=== PATIENT | male | born 1940 | race Caucasian/White ===

== ENCOUNTER 2017-04-04 06:52 | Emergency (ER) | payer OTHER, MEDICARE ==
[2017-04-04 07:16] VITALS: RESP 16; TEMP 97.5
--- NOTE | 2017-04-04 08:02 | EDPHY ---
H & P Time Seen by Provider: 04/04/17 07:52 HPI/ROS: CHIEF COMPLAINT: Bilateral neck pain HISTORY OF PRESENT ILLNESS: Patient is a 76-year-old male with multiple medical problems including diabetes, atrial fibrillation and spinal stenosis who presents to the emergency department with bilateral neck pain. His pain is primarily over his trapezius bilaterally extending up his neck to the base of his head. He feels as though the muscles tight and spasming. He does not recall an injury. However, he did use and elliptical for the 1st time a day or 2 ago. Patient denies any weakness or numbness. No visual change. Patient has discomfort at the base of his head extending to the neck muscles but no headache specifically. The patient states that he recently underwent colonoscopy. He has been on Lovenox. 2 days ago he had his INR checked it was 1.8. He just discontinued his Lovenox. He was also complaining of mild bruising at the Lovenox injection sites. No abdominal pain. No nausea vomiting. REVIEW OF SYSTEMS: My complete review of systems is negative except as mentioned in the HPI. Past Medical/Surgical History: Includes diabetes, atrial fibrillation, neuropathy, arthritis, spinal stenosis, coronary artery disease Past surgical history: Includes cardiac stent Social history: The patient is visiting his family. He is currently living in their walk out basement. Smoking Status: Never smoked Physical Exam: 36.4, 120/89, 96, 16, 95% on room air GENERAL: Well-appearing, in no acute distress, alert. HEENT: Eyes normal to inspection, normal pharynx, no signs of dehydration. NECK: Patient has no midline cervical tenderness palpation. No bony deformity. Patient has mild tenderness palpation over his trapezius bilaterally. The muscles do see mildly tight. There is no tenderness palpation over the vessels of the neck. No bruit. No thyromegaly, no lymphadenopathy, supple. RESPIRATORY: Clear to auscultation bilaterally, no rales, rhonchi or wheezing. CVS: Regular rate and rhythm, no rubs, murmurs, or gallops. ABDOMEN: Soft, nontender, nondistended, no organomegaly. Patient has bruising of various stages on his lower abdomen where he was giving his Lovenox injections. No abdominal tenderness palpation. No large hematoma. BACK: Normal to inspection, no CVA tenderness. SKIN: Normal color, no rash, warm, dry. No pallor. EXTREMITIES: No pedal edema, no calf tenderness, no Homans sign or cords, no joint swelling. NEURO/PSYCH: Higher functions: [Alert and Oriented x3]. [Normal speech and cognition]. [ Normal mood and affect]. Cranial nerves: [Normal as tested]. Cerebellar: [Normal as tested. Good finger to nose, good [id number], normal gait]. Peripheral exam: [Normal motor exam. Normal sensation. Normal reflexes]. Constitutional: Initial Vital Signs Temperature (C) 36.4 C 04/04/17 07:11 Heart Rate 96 04/04/17 07:11 Respiratory Rate 16 04/04/17 07:11 Blood Pressure 120/89 H 04/04/17 07:11 O2 Sat (%) 95 04/04/17 07:11 O2 Delivery Mode Room Air Allergies/Adverse Reactions: No Known Allergies Allergy (Unverified 04/04/17 07:27) Home Medications: Medication Instructions Recorded Aspirin 04/04/17 Benazepril HCl 04/04/17 Biotin 04/04/17 Chlorthalidone 04/04/17 Coumadin 04/04/17 Cyclobenzaprine [Flexeril] 5 mg PO TID #15 tab 04/04/17 Diltiazem 04/04/17 Glucosamine 04/04/17 Lipitor 04/04/17 Lyrica 04/04/17 Magnesium 04/04/17 Metformin HCl 04/04/17 Metoprolol Tartrate 04/04/17 Multivitamin 04/04/17 Tradjenta 04/04/17 Tylenol 04/04/17 Vitamin B-12 04/04/17 Zolpidem Tartrate 04/04/17 Medical Decision Making ED Course/Re-evaluation: In the emergency department I discussed possible etiologies with the patient. I answered all his questions. Because the patient is tracking is INR I ordered laboratory studies. A CT of his neck was ordered. INR is 2.02 CT of the C-spine: Please refer the dictated by Dr. Tae Cordero. Patient has degenerative disease. No acute disease noted. I discussed risks patient. Was given warnings prior to leaving. He will continue to take Tylenol home. He is given a prescription for Flexeril. He is given warnings request medication. Differential Diagnosis: My differential includes but is not limited to disc herniation, spinal stenosis , muscle strain, muscle spasm, torticollis, coagulopathy - Data Points Laboratory Results: 04/04/17 08:05 PT 22.9 SEC H SEC (12.0-15.0) INR 2.02 H (0.83-1.16) APTT 42.9 SEC H SEC (23.0-38.0) Departure - Departure Disposition: Home, Routine, Self-Care Clinical Impression: Neck pain, Neck muscle spasm Condition: Good Instructions: Muscle Spasm (ED), Neck Pain (ED), Acute Neck Pain (ED) Additional Instructions: Return with increasing pain, weakness, numbness, headache, vomiting or any other concerns. Your medicine may make you slightly dizzy. Make sure you of health when ambulating. You can take Tylenol 650 mg every 6 hr while awake. Referrals: Kamran Perez MD [Primary Care Provider] - 2-3 days, if not improved Prescriptions: Cyclobenzaprine [Flexeril] 5 mg PO TID #15 tab
[2017-04-04 08:40] LABS: INR 2.02 (0.83-1.16); PROTIME(PATIENT) 22.9 SEC (12.0-15.0)
[2017-04-04 09:21] VITALS: BP 126/87; PULSE 85; O2SAT 96
== END 2017-04-04 09:32 | disposition home or self-care (01) ==
DX: M54.2 Cervicalgia (principal); M62.838 Other muscle spasm; E11.9 Type 2 diabetes mellitus without complications; I25.10 Atherosclerotic heart disease of native coronary artery without angina pectoris; Z79.01 Long term (current) use of anticoagulants; Z79.82 Long term (current) use of aspirin

== ENCOUNTER → 2018-03-11 | Outpatient (CLI) | payer OTHER, MEDICARE | LOC: BMCIMAGING 14:43 | PROVIDERS: ATTEND Internal Medicine | DX: J40 Bronchitis, not specified as acute or chronic (principal); J98.4 Other disorders of lung; I51.7 Cardiomegaly ==

== ENCOUNTER → 2018-05-05 | Outpatient (CLI) | payer OTHER, MEDICARE | LOC: BMCIMAGING 16:31 | PROVIDERS: ATTEND Internal Medicine | DX: Z09 Encounter for follow-up examination after completed treatment for conditions other than malignant neoplasm (principal); I51.7 Cardiomegaly; Z87.09 Personal history of other diseases of the respiratory system ==